=== PATIENT | female | born 1975 | race American Indian/Alaskan Native ===

== ENCOUNTER 2017-05-24 00:37 | Emergency (ER) | payer OTHER ==
[2017-05-24] MEDS ORDERED: LIDOCAINE VISCOUS 2% PO ONE (04:49)
[2017-05-24] MEDS ORDERED: TORADOL IM ONE (04:49)
--- NOTE | 2017-05-24 04:58 | Emergency Department Report ---
ED ENT HPI - General Chief complaint: Sore Throat Stated complaint: SORE THROAT Time Seen by Provider: 05/24/17 03:21 Source: patient Mode of arrival: Ambulatory Limitations: No Limitations - History of Present Illness Initial comments: This is a 41-year-old female nontoxic, well nourished in appearance, no acute signs of distress presents to the ED with c/o of sore throat 5 days. Patient distress pain as sensations while razor blades. Patient denies any drooling, chest pain, shortness of breath, fever, chills, nausea, vomiting, headache or stiff neck. Patient denies any allergies or past medical history. MD complaint: tooth pain -: days(s) (5) Location: throat Severity: mild Severity scale (0 -10): 8 Quality: other (sensation of swallowing razor blades) Consistency: constant Worsens with: none Associated Symptoms: pain with swallowing, sore throat. denies: fever, cough, gum swelling, toothache, tinnitus, hearing loss, discharge from ear, rhinorrhea - Related Data Previous Rx's Medication Instructions Recorded Last Taken Type Azithromycin [Zithromax Z-PIEDAD] 250 mg PO DAILY #6 tablet 04/23/14 Unknown Rx Guaifenesin/Codeine Phosphate 5 ml PO BID PRN #10 dose 04/23/14 Unknown Rx [Guaifen-Codeine 100-10 mg/5 ml] Prednisone [Prednisone 5 mg (6-Day 5 mg PO .TAPER #1 tab.ds.pk 04/23/14 Unknown Rx Pack, 21 Tabs)] Promethazine [Phenergan] 25 mg PO BID PRN #10 tablet 04/23/14 Unknown Rx Amoxicillin/K Clav Tab [Augmentin 1 each PO Q12HR #20 tablet 05/24/17 Unknown Rx 500 MG TAB] Nystas/Diphen/Xyl Visc/Mylanta 15 ml MM Q6H PRN 10 Days udc 05/24/17 Unknown Rx [Magic Mouthwash] Allergies Allergy/AdvReac Type Severity Reaction Status Date / Time No Known Allergies Allergy Verified 04/23/14 06:55 ED Dental HPI - General Chief complaint: Sore Throat Stated complaint: SORE THROAT Time Seen by Provider: 05/24/17 03:21 Source: patient Mode of arrival: Ambulatory Limitations: No Limitations - Related Data Previous Rx's Medication Instructions Recorded Last Taken Type Azithromycin [Zithromax Z-PIEDAD] 250 mg PO DAILY #6 tablet 04/23/14 Unknown Rx Guaifenesin/Codeine Phosphate 5 ml PO BID PRN #10 dose 04/23/14 Unknown Rx [Guaifen-Codeine 100-10 mg/5 ml] Prednisone [Prednisone 5 mg (6-Day 5 mg PO .TAPER #1 tab.ds.pk 04/23/14 Unknown Rx Pack, 21 Tabs)] Promethazine [Phenergan] 25 mg PO BID PRN #10 tablet 04/23/14 Unknown Rx Amoxicillin/K Clav Tab [Augmentin 1 each PO Q12HR #20 tablet 05/24/17 Unknown Rx 500 MG TAB] Nystas/Diphen/Xyl Visc/Mylanta 15 ml MM Q6H PRN 10 Days udc 05/24/17 Unknown Rx [Magic Mouthwash] Allergies Allergy/AdvReac Type Severity Reaction Status Date / Time No Known Allergies Allergy Verified 04/23/14 06:55 ED Review of Systems ROS: Stated complaint: SORE THROAT Other details as noted in HPI Constitutional: denies: chills, fever Eyes: denies: eye pain, eye discharge, vision change ENT: throat pain. denies: ear pain Respiratory: denies: cough, shortness of breath, wheezing Cardiovascular: denies: chest pain, palpitations Endocrine: no symptoms reported Gastrointestinal: denies: abdominal pain, nausea, diarrhea Genitourinary: denies: urgency, dysuria, discharge Musculoskeletal: denies: back pain, joint swelling, arthralgia Skin: denies: rash, lesions Neurological: denies: headache, weakness, paresthesias Psychiatric: denies: anxiety, depression Hematological/Lymphatic: denies: easy bleeding, easy bruising ED Past Medical Hx - Past Medical History Previous Medical History?: No - Surgical History Past Surgical History?: Yes Additional Surgical History: ectopic , tubal - Social History Smoking Status: Never Smoker Substance Use Type: None - Medications Home Medications: Home Medications Medication Instructions Recorded Confirmed Last Taken Type Azithromycin [Zithromax Z-PIEDAD] 250 mg PO DAILY #6 tablet 04/23/14 Unknown Rx Guaifenesin/Codeine Phosphate 5 ml PO BID PRN #10 dose 04/23/14 Unknown Rx [Guaifen-Codeine 100-10 mg/5 ml] Prednisone [Prednisone 5 mg (6-Day 5 mg PO .TAPER #1 tab.ds.pk 04/23/14 Unknown Rx Pack, 21 Tabs)] Promethazine [Phenergan] 25 mg PO BID PRN #10 tablet 04/23/14 Unknown Rx Amoxicillin/K Clav Tab [Augmentin 1 each PO Q12HR #20 tablet 05/24/17 Unknown Rx 500 MG TAB] Nystas/Diphen/Xyl Visc/Mylanta 15 ml MM Q6H PRN 10 Days udc 05/24/17 Unknown Rx [Magic Mouthwash] ED Physical Exam - General Limitations: No Limitations General appearance: alert, in no apparent distress - Head Head exam: Present: atraumatic, normocephalic - Eye Eye exam: Present: normal appearance - ENT ENT exam: Present: mucous membranes moist, TM's normal bilaterally, normal external ear exam - Expanded ENT Exam Expanded Ear exam: Present: normal external inspection Mouth exam: Present: normal external inspection, tongue normal. Absent: drooling, trismus, muffled voice, tongue elevation, laceration Teeth exam: Present: normal inspection Throat exam: Positive: tonsillar erythema, tonsillomegaly (2+), tonsillar exudate, other (Uvula midline. No abscess or swelling ntoed. ). Negative: R peritonsillar mass, L peritonsillar mass - Neck Neck exam: Present: normal inspection, full ROM, lymphadenopathy (tonsillar bilateral). Absent: tenderness, meningismus, thyromegaly - Respiratory Respiratory exam: Present: normal lung sounds bilaterally. Absent: respiratory distress, wheezes, rales, rhonchi, stridor, chest wall tenderness, accessory muscle use, decreased breath sounds, prolonged expiratory - Cardiovascular Cardiovascular Exam: Present: regular rate, normal rhythm, normal heart sounds. Absent: irregular rhythm, systolic murmur, diastolic murmur, rubs, gallop - GI/Abdominal GI/Abdominal exam: Present: soft, normal bowel sounds. Absent: distended, tenderness, guarding, rebound, rigid - Extremities Exam Extremities exam: Present: normal inspection, full ROM, normal capillary refill. Absent: tenderness, pedal edema, joint swelling, calf tenderness - Back Exam Back exam: Present: normal inspection, full ROM. Absent: tenderness, CVA tenderness (R), CVA tenderness (L), muscle spasm, paraspinal tenderness, vertebral tenderness, rash noted - Neurological Exam Neurological exam: Present: alert, oriented X3, CN II-XII intact, normal gait, reflexes normal - Psychiatric Psychiatric exam: Present: normal affect, normal mood - Skin Skin exam: Present: warm, dry, intact, normal color. Absent: rash ED Course Vital Signs 05/24/17 01:17 Temperature 98.4 F Pulse Rate 116 H Blood Pressure 160/103 O2 Sat by Pulse 18 L Oximetry - Reevaluation(s) Reevaluation #1: 05/24/17 05:12 Patient is speaking in full sentences with no signs of distress noted. ED Medical Decision Making - Medical Decision Making This is a 41-year-old female that presents with tonsillitis exudate. Patient is stable and was examined by me. Strep test negative. Patient received viscous lidocaine and Toradol and the ED with the status symptoms are improving and her subsided. Vital signs stable for discharge. Patient was instructed Follow-up with a primary care doctor in 3-5 days or if symptoms worsen and continue return to emergency room as soon as possible. At time time of discharge, the patient does not seem toxic or ill in appearance. No acute signs of distress noted. Patient agrees to discharge treatment plan of care. No further questions noted by the patient. Critical care attestation.: If time is entered above; I have spent that time in minutes in the direct care of this critically ill patient, excluding procedure time. ED Disposition Clinical Impression: Tonsillitis with exudate Disposition: DC-01 TO HOME OR SELFCARE Is pt being admited?: No Does the pt Need Aspirin: No Condition: Stable Instructions: Tonsillitis (ED), Amoxicillin/Clavulanate Potassium (By mouth) Additional Instructions: Follow-up with a primary care doctor in 3-5 days or if symptoms worsen and continue return to emergency room as soon as possible. Prescriptions: Amoxicillin/K Clav Tab [Augmentin 500 MG TAB] 1 each PO Q12HR #20 tablet Nystas/Diphen/Xyl Visc/Mylanta [Magic Mouthwash] 15 ml MM Q6H PRN 10 Days udc PRN Reason: Sore Throat Referrals: PRIMARY CARE, [Primary Care Provider] - 3-5 Days BRENT RITTER MD [Staff Physician] - 3-5 Days [facility] [Outside] - 3-5 Days [facility] [Outside] - 3-5 Days Forms: Work/School Release Form(ED)
[2017-05-24 05:16] VITALS: BP 149/89
== END 2017-05-24 06:13 | disposition home or self-care (01) ==
LOC: ED 00:37
DX: J03.90 Acute tonsillitis, unspecified (principal)
CPT/HCPCS: 87116; 87430; 96372; 99282; J1885

== ENCOUNTER 2021-12-05 06:00 | Observation (INO) | payer OTHER ==
[2021-11-29 11:12] LABS: Basophils # (Auto) 0.1 K/mm3 (0.0-0.1); Basophils % (Auto) 0.7 % (0.0-1.8); Eosinophils % (Auto) 0.6 % (0.0-4.3); Hematocrit 40.1 % (30.3-42.9); Lymphocytes % (Auto) 28.6 % (13.4-35.0); Mean Corpuscular HGB Conc 32 % (30-34); Mean Corpuscular Volume 83 fl (79-97); Monocytes # (Auto) 0.5 K/mm3 (0.0-0.8); Monocytes % (Auto) 7.4 % (0.0-7.3); Platelet Count 322 K/mm3 (140-440); Red Blood Count 4.85 M/mm3 (3.65-5.03); Red Cell Distribution Width 14.9 % (13.2-15.2)
[2021-11-29 11:28] LABS: Blood Urea Nitrogen 11 mg/dL (7-17); Calcium 9.5 mg/dL (8.4-10.2); Hemolysis Index 2
[2021-11-29 11:57] LABS: BUN/Creatinine Ratio 16
--- NOTE | 2021-11-30 12:32 | History and Physical Report ---
History of Present Illness Date of examination: 11/29/21 Date of admission: 12/05/2021 Chief complaint: heavy vaginal bleeding History of present illness: Visit Type: Pre-Op CC: no complaints. History of Present Illness: Pt presents for Pre Op Visit. No c/o. .... .................................................................Kely Bourne November 29, 2021 9:43 AM mask,Patient denies fever, cough, shortness of breath and exposure to COVID-19. Pt here for pre op for LAVH with salpingectomy. She has menorrhagia and dysmenorrhea. All risk/benefits/alternatives were d/w pt and questions were addressed and answered. Several minutes spent speaking with pt regarding total vs partal hysterectoy. Stressed to pt that total does not mean removal of the ovaries but it does mean removal of the cx which does not have any hormonal value. She expressed understanidng. All risk/benefits/alternatives were d/w pt and questions were addressed and answered. Consents signed and placed on the chart and copy provider to pt. I did stress that should the LAVH need to be converted to abdominal procedure this would also involve removal of the cervix. She expressed understanding. Vital Signs: Patient Profile: 46 Years Old Female LMP: 11/05/2021 Height: 65 inches Weight: 205 pounds BMI: 34.11 Temp: 98.1 degrees F BP sittin / 82 (left arm) Menstrual History: LMP (date): 11/05/2021 Past History : 6 Term Births: 4 Premature Births: 0 Living Children: 4 Para: 4 Mult. Births: 0 Prev : 0 Prev. attempt? 0 Aborta: 2 Elect. Ab: 0 Spont. Ab: 1 Ectopics: 1 [employer] History Uterine Surgery (not C/S): negative Operations: positive Tubal Ligation Ectopic - R tubal removed (1995) Total thyroidectomy - 09/2019 - thyroid cancer Hospitalizations: negative Anesthesia Complications: negative Abnormal PAP: negative Uterine Anomaly: negative JAVI Exposure: negative Infertility: negative Infection History HIV Risk Eval: no Personal hx. of genital herpes: no Partner hx. of genital herpes: no Hx of STD: None Active Medications (reviewed today): SYNTHROID 137 MCG ORAL TABLET (LEVOTHYROXINE SODIUM) LYSTEDA 650 MG ORAL TABLET (TRANEXAMIC ACID) 1300 mg 3 times daily (3900 mg/day) for up to 5 days during monthly menstruation AMLODIPINE BESYLATE TABLET (AMLODIPINE BESYLATE TABS) HYDROCHLOROTHIAZIDE TABLET (HYDROCHLOROTHIAZIDE TABS) Current Allergies (reviewed today): No known allergies Past Medical History: Reviewed history from 09/19/2021 and no changes required: Hypertension Hyperthyroidism Anemia Past Surgical History: Reviewed history from 09/19/2021 and no changes required: positive Tubal Ligation Ectopic - R tubal removed (1995) Total thyroidectomy - 09/2019 - thyroid cancer Family History Summary: Reviewed history Last on 09/19/2021 and no changes required:11/30/2021 General Comments - FH: aneurysm-mother breast CA-(P) anunt DM-"both sides" Social History: Reviewed history from 02/20/2019 and no changes required: Patient is single Smoking History: Patient has never smoked. 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 Denies nausea, vomiting, headache, swelling of legs, abdominal pain, vaginal discharge, vaginal bleeding and contractions. Denies vaginal discharge, incontinence, dysuria, hematuria, urinary frequency, amenorrhea, menorrhagia, abnormal vaginal bleeding, pelvic pain, genital sores, decreased libido, painful periods, painful sex, urinary urgency, hot flashes, vaginal dryness, vaginal itching and vaginal odor. CV Denies chest pains, palpitations, syncope, dyspnea on exertion, orthopnea, PND and peripheral edema. Resp Denies cough, dyspnea at rest, excessive sputum, hemoptysis, wheezing and pleurisy. GI Denies nausea, vomiting, diarrhea, constipation, change in bowel habits, abdominal pain, melena, hematochezia, jaundice, gas/bloating, indigestion/heart burn, dysphagia and odynophagia. Endo Denies cold intolerance, heat intolerance, polydipsia, polyphagia, polyuria and unusual weight change. Breast Denies left breast lump, right breast lump, nipple discharge, bloody discharge from nipple, breast pain, abnormal mammogram and breast enlargement. MS Denies back pain, joint pain, joint swelling, muscle cramps, muscle weakness, stiffness, arthritis, sciatica, restless legs, leg pain at night and leg pain with exertion. Derm Denies rash, itching, dryness and suspicious lesions. Neuro Denies paralysis, paresthesias, headache, seizures, tremors, vertigo, transient blindness, frequent falls, frequent headaches and difficulty walking. Psych Denies depression, anxiety, irritability and mood swings. Eyes Denies blurring, diplopia, irritation, discharge, vision loss, eye pain and photophobia. ENT Denies earache, ear discharge, tinnitus, decreased hearing, nasal congestion, nosebleeds, sore throat and hoarseness. Allergy Denies urticaria, allergic rash, hay fever and recurrent infections. Heme Denies abnormal bruising, bleeding and enlarged lymph nodes. [Labs In-House] Physical Exam Appearance: well developed, well nourished, no acute distress Other Exams Breast exam: no masses or nipple discharge Abdomen: soft, non-tender, no masses, bowel sounds normal Skin: no ulcers, xanthomas Lymph: no cervical, axillary, or inguinal adenopathy Extremities: normal alignment, no joint enlargement, crepitus, masses or tenderness; normal tone and strength Genitourinary Exam Comments: deferred until EUA Past History Past Medical History: other (see hpi) Past Surgical History: other (see hpi) [employer] History: other (see hpi) Family/Genetic History: other (see hpi) Social history: other (see hpi) Medications and Allergies Allergies Allergy/AdvReac Type Severity Reaction Status Date / Time No Known Allergies Allergy Verified 04/23/14 06:55 Home Medications Medication Instructions Recorded Confirmed Last Taken Type Levothyroxine Sodium [Synthroid] 137 mcg PO DAILY 11/24/21 11/24/21 Unknown History traZODone [Desyrel] 50 mg PO QHS 11/24/21 11/24/21 Unknown History Review of Systems All systems: negative - Vital Signs Vital signs: Vital Signs Temp Pulse Resp BP Pulse Ox 98.7 F 73 20 161/97 97 11/29/21 11:00 11/29/21 11:00 11/29/21 11:00 11/29/21 11:00 11/29/21 11:00 Temp Pulse Resp BP Pulse Ox 98.7 F 73 20 161/97 97 11/29/21 11:00 11/29/21 11:00 11/29/21 11:00 11/29/21 11:00 11/29/21 11:00 - Physical Exam Cardiovascular: Normal S1, Normal S2 Lungs: Positive: Clear to auscultation, Normal air movement Abdomen: Positive: normal appearance, soft. Negative: distention, tenderness, guarding Genitourinary (Female): Positive: other (deferred until eua) Extremities: Positive: normal. Negative: tenderness, edema Deep Tendon Reflex Grade: Normal +2 Results Result Diagrams: 11/29/21 11:05 11/29/21 06:00 All other labs normal. Assessment and Plan - Patient Problems (1) Menorrhagia Status: Acute Qualifiers: Menorrhagia type: with regular cycle Qualified Code(s): N92.0 - Excessive and frequent menstruation with regular cycle Plan to address problem: -plan for lavh with salpingectomy -consents signed and placed on the chart -all risk.benefits and alternatives were d/w pt and questions were addressed and answered. (2) Dysmenorrhea Status: Acute
[~2021-12-05 06:00] MED LIST: ACETAMINOPHEN 500 MG TAB PO SCH; CELECOXIB 200 MG CAP PO NR; GABAPENTIN 300 MG CAP PO SCH; MAGNESIUM OXIDE 400 MG TAB PO SCH; ceFAZolin/Water 2 GM/20 ML 2 GM/20 ML SYRINGE IV NR
[2021-12-05] MEDS: LACTATED RINGERS 1,000 ML IV SCH ×3 (06:45→23:58)
[2021-12-05] MEDS ORDERED: BUPIVACAINE/PF (0.5%) 5 MG/1 ML 30 ML VIAL INFILTRATI ONE ×2 (07:19→09:15)
[2021-12-05] MEDS ORDERED: VASOPRESSIN 20 UNIT/1 ML INJ ONE (07:19)
[2021-12-05] MEDS ORDERED: SODIUM CHLORIDE 0.9% 100 ML ONE (07:19)
[2021-12-05] MEDS ORDERED: ROCURONIUM 50 MG/5 ML INJ IV ONE ×2 (07:45→10:36)
[2021-12-05] MEDS ORDERED: LIDOCAINE MPF (2%) 20 MG/1 ML VIAL 5 ML ONE (07:45)
[2021-12-05] MEDS ORDERED: ONDANSETRON 4 MG/2 ML INJ ONE (07:45)
[2021-12-05] MEDS ORDERED: HYDROmorphone 1 MG/1 ML INJ ONE (07:46)
[2021-12-05] MEDS ORDERED: propofoL 200 MG/20 ML VIAL IV ONE (07:46)
[2021-12-05] MEDS ORDERED: ANTICOAGULANT SOD CITRATE SOLUTION MC ONE ×2 (07:49→09:14)
--- NOTE | 2021-12-05 08:08 | Anesthesia Consultation ---
Anesthesia Consult and Med Hx Date of service: 12/05/21 - Airway Anesthetic Teeth Evaluation: Good ROM Head & Neck: Adequate Mental/Hyoid Distance: Adequate Mallampati Class: Class II Intubation Access Assessment: Probably Good - Pulmonary Exam CTA: Yes - Pre-Operative Health Status ASA Pre-Surgery Classification: ASA2 Proposed Anesthetic Plan: General - Pulmonary Hx Smoking: No Hx Sleep Apnea: No (Snores) - Cardiovascular System Hx Hypertension: Yes (IN PAST-DUE TO STRESS-NONE NOW-TRAZADONE AT HS) - Central Nervous System Hx Neuromuscular Disorder: No Hx Back Pain: Yes Hx Psychiatric Problems: Yes (HX STRESS) - Gastrointestinal Hx Ulcer: No - Endocrine Hx Renal Disease: No Hx Liver Disease: No Hx Insulin Dependent Diabetes: No Hx Non-Insulin Dependent Diabetes: No Hx Thyroid Disease: Yes Hx Hypothyroidism: Yes - Hematic Hx Anemia: Yes Hx Sickle Cell Disease: No - Other Systems Hx Alcohol Use: Yes (OCC.) Hx Substance Use: No Hx Cancer: Yes Hx Obesity: Yes
--- NOTE | 2021-12-05 08:09 | Anesthesia Day of Surgery ---
Anesthesia Day of Surgery - Day of Surgery Patient Examined: Yes Patient H&P Reviewed: Yes Patient is NPO: Yes Beta Blockers: No Cardiac Clearance: No Pulmonary Clearance: No
[2021-12-05] MEDS ORDERED: ONDANSETRON 4 MG/2 ML INJ IV PRN (09:00)
[2021-12-05] MEDS ORDERED: HYDROmorphone 0.5 MG/0.5 ML INJ IV PRN ×2 (09:00)
[2021-12-05] MEDS ORDERED: dexAMETHasone 20 MG/5 ML VIAL ONE (09:12)
[2021-12-05] MEDS ORDERED: PHENYLEPHRINE/NS 1,000 MCG/10 ML SYRINGE (OR USE) IV ONE (09:12)
[2021-12-05] MEDS ORDERED: SODIUM CHLORIDE 0.9% IRRIG SOLN 2000 ML IR ONE (09:15)
[2021-12-05] MEDS ORDERED: VASOPRESSIN 20 UNIT/1 ML INJ IM ONE (09:15)
[2021-12-05] MEDS ORDERED: SODIUM CHLORIDE 0.9% IRR 1,500 ML BOTTLE IR ONE (09:15)
[2021-12-05] MEDS ORDERED: SODIUM CHLORIDE 0.9% 100 ML IVPB IV ONE (09:16)
[2021-12-05] MEDS ORDERED: LACTATED RINGERS 1,000 ML ONE ×2 (10:06→12:15)
[2021-12-05] MEDS ORDERED: GLYCOPYRROLATE 0.4 MG/2 ML INJ ONE (10:55)
[2021-12-05] MEDS ORDERED: NEOSTIGMINE 10MG/10 ML INJ MDV ONE (10:55)
--- NOTE | 2021-12-05 11:04 | Operative Report ---
Operative Report Operative Report: Date of procedure: 12/05/2021 Pre-operative diagnosis: Menorrhagia Dysmenorrhea Post-operative diagnosis: Same Procedure name(s): Laparoscopic assisted vaginal hysterectomy Left salpingectomy Surgeon: Cori Gaviria MD Conditioner Tumbler Operator: Dr. Valencia Buenrostro Anesthesia: General endotracheal anesthesia EBL: 600 mL Urine output: 300 mL of clear urine out at end of procedure Fluids: 1500 mL Findings: Grossly normal ovaries bilaterally. No fallopian tube on the right side. Left fallopian tube appeared to be normal. Approximately 10-week size uterus globular in consistency. Indications: Patient with history of menorrhagia and dysmenorrhea desired definitive therapy. All risk benefits and alternatives were discussed with the patient. Consents were signed and placed on the chart. Procedure: Patient was taken to the operating room where she was placed under general endotracheal anesthesia. She was then prepped and draped in sterile fashion. It was at this point that the large V care uterine manipulator was placed inside of the uterus after the uterus was sounded to approximately 12 cm. Fischer catheter was also placed at this time. Attention was then turned to the umbilicus in which a supraumbilical incision was made. Under direct visualization the 5 mm trocar was placed inside the peritoneum the peritoneum was then insufflated. As at this point that the laparoscopic portion of the procedure was performed. 2 lateral 5 mm ports were also placed under direct visualization. Using the tripolar instrument the upper pedicles were cauterized and transected to the including round ligament with excellent hemostasis noted bilaterally. Attention was then turned vaginally. A weighted speculum was placed into the vagina and the cervix was grasped with a single-tooth tenaculum 2. The cervix was then injected circumferentially with Pitressin. The cervix was then circumferentially incised with the scalpel and the bladder dissected off of the pubovesical cervical fascia anteriorly with a sponge stick and Metzenbaum scissors. The same procedure was performed posteriorly and the posterior cul-de-sac was entered into sharply without difficulty. At this point a Rosana Clamp was placed over the uterosacral ligaments on either side. These were then transected and suture ligated with 0 Vicryl. Hemostasis was assured. The cardinal ligaments were then clamped on both sides transected and suture ligated in similar fashion. The uterine arteries were then serially clamped with Rosana clamps transected and suture ligated on both sides. Excellent hemostasis was visualized. After it was clear that the uterus had been completely from all pedicles the uterus was removed vaginally intact with cervix intact. The vaginal cuff angles were closed with figure of 8 stitches of 0 Vicryl on both sides. The peritoneum was incorporated in the stitching of the vaginal cuff. A series of interrupted figure of 8 sutures using 0 Vicryl were used to close the entire vaginal cuff. Excellent hemostasis was noted. The vagina was then irrigated copiously. Attention was then turned laparoscopically at which time. Again all pedicles were noted to be hemostatic. All instruments were then removed from the abdomen and the vagina. All gas was released from the abdomen. The abdominal incisions were closed using 4-0 Monocryl. All of the abdominal incisions were injected with Marcaine without epi. Patient tolerated the procedure well sponge lap and needle counts were all correct 3 the patient was taken to the recovery room awake and in stable condition.
[2021-12-05] MEDS ORDERED: IBUPROFEN 800 MG TAB PO PRN (11:06)
[2021-12-05] MEDS ORDERED: ACETAMINOPHEN 325 MG TAB PO PRN (11:06)
[2021-12-05] MEDS: MORPHINE 4 MG/1 ML INJ IV PRN ×2 (12:21→23:16)
[2021-12-05] MEDS: KETOROLAC 30 MG/1 ML INJ IV PRN ×2 (14:30→20:31)
[2021-12-05] MEDS: ceFAZolin/NS 1 GM/50 ML 1 GM/50 ML BAG IV SCH ×2 (14:39→23:18)
[2021-12-05] MEDS ORDERED: PHENOL 1.4% 177 ML BOTTLE MM PRN (16:30)
--- NOTE | 2021-12-05 17:33 | Post Anesthesia Evaluation ---
- Post Anesthesia Evaluation Patient Participated: Yes Airway Patent: Yes Stable Respiratory Function: Yes Nausea/Vomiting: No Temp > 96.8F: Yes Pain Manageable: Yes Adequeate Hydration: Yes Anesthesia Complications: No Block Receding Appropriately: Not Applicable Patient on Ventilator: No
[2021-12-05] MEDS: HYDROcodone/ACETAMINOPHEN 5-325 MG TAB PO PRN (17:56)
--- NOTE | 2021-12-05 21:13 | Event Note ---
Date: 12/05/21 Patient doing well, better pain control with Percocet. UO good w/ clear light yellow urine draining into Fischer bag. Tolerating diet. Questions encouraged and answered,
[2021-12-06] MEDS: HYDROcodone/ACETAMINOPHEN 5-325 MG TAB PO PRN ×2 (03:46→10:33)
[2021-12-06] MEDS ORDERED: ONDANSETRON 4 MG ODT TAB PO ONE (05:45)
[2021-12-06] MEDS ORDERED: LEVOTHYROXINE 25 MCG TAB PO SCH (06:00)
[2021-12-06] MEDS ORDERED: LEVOTHYROXINE 112 MCG TAB PO SCH (06:00)
[2021-12-06] MEDS ORDERED: LEVOTHYROXINE 112 MCG, LEVOTHYROXINE 25 MCG PO SCH (06:00)
[2021-12-06 06:16] LABS: Hematocrit 32.7 % (30.3-42.9); Hemoglobin 10.3 gm/dl (10.1-14.3)
--- NOTE | 2021-12-06 09:01 | Progress Note ---
Assessment and Plan - Patient Problems (1) Menorrhagia Status: Acute Qualifiers: Menorrhagia type: with regular cycle Qualified Code(s): N92.0 - Excessive and frequent menstruation with regular cycle (2) Dysmenorrhea Status: Acute (3) S/P laparoscopic assisted vaginal hysterectomy (LAVH) Status: Acute Plan to address problem: -routine post op care -d/c home this pm if remains AFVSS Subjective - Subjective Date of service: 12/06/21 Principal diagnosis: POD #1 s/p LAVH with LS Interval history: Pt doing well. + toleration of regular diet, spontaneous voiding and pain well controlled. Patient reports: appetite normal, voiding normally, pain well controlled Objective - Vital Signs Latest vital signs: Vital Signs Temp Pulse Resp BP BP Pulse Ox 12/06/21 04:10 98.6 F 69 18 115/79 12/06/21 03:46 20 12/06/21 00:38 98.6 F 54 L 18 137/65 100 12/05/21 23:16 18 12/05/21 20:38 98.6 F 84 16 131/73 100 12/05/21 20:15 98 12/05/21 16:00 99.6 F 80 18 128/66 99 12/05/21 14:21 98 12/05/21 13:15 98.1 F 98 H 16 133/70 98 12/05/21 13:00 98.1 F 63 18 129/71 98 12/05/21 12:30 63 18 131/69 98 12/05/21 12:15 72 20 133/75 100 12/05/21 12:00 62 17 135/66 100 12/05/21 11:45 59 L 17 125/70 100 12/05/21 11:30 59 L 18 121/63 100 12/05/21 11:25 63 18 126/65 100 12/05/21 11:20 57 L 19 113/59 100 12/05/21 11:15 98.5 F 59 L 18 119/58 100 Intake and Output 12/05/21 12/06/21 12/06/21 22:59 06:59 14:59 Intake Total 1690 400 Output Total 1900 1500 Balance -210 -1100 Intake: IV 1050 ANCEF/NS 1 GM/50 ML 1 gm 50 In 50 ml @ 100 mls/hr IV Q8H JOHN Rx#:[id number] Lactated Ringers 1,000 ml 1000 @ 125 mls/hr IV DIRECT JOHN Rx#:[id number] Oral 640 Intake, Free Water 400 Output: Urine 1900 1500 Indwelling Catheter 1900 1500 Other: Total, Intake Amount 320 Total, Output Amount 700 700 Voiding Method Indwelling Catheter # Voids Indwelling Catheter 0 - Exam Cardiovascular: Present: Normal S1, Normal S2 Lungs: Present: Clear to auscultation Abdomen: Present: normal appearance, soft, normal bowel sounds. Absent: distention, tenderness, guarding Deep Tendon Reflex Grade: Normal +2 Incision: Present: normal, dry, intact
--- NOTE | 2021-12-06 09:01 | Discharge Summary ---
Providers - Providers Date of Admission: 12/05/21 11:06 Date of discharge: 12/06/21 Attending physician: RAY PRICE Primary care physician: PROGRAM DIRECTOR/MUSIC DIRECTOR Hospitalization Reason for admission: other (menorrhagia/ dysmenorrhea) Procedure: other (LAVH with RS) Procedure details: see op notes Incision: normal, dry, intact Hospital course: pt admitted for LAVH with salpingectomy. pt had above stated procedure that was not complicated. She had routine post op care and desired d/c home today. Condition at discharge: Stable Disposition: 01 HOME / SELF CARE / HOMELESS - Discharge Diagnoses (1) Menorrhagia Status: Acute Qualifiers: Menorrhagia type: with regular cycle Qualified Code(s): N92.0 - Excessive and frequent menstruation with regular cycle (2) Dysmenorrhea Status: Acute Plan - Discharge Medications Prescriptions: Ibuprofen [Motrin 800 MG tab] 800 mg PO Q8HR PRN #30 tablet PRN Reason: Pain, Moderate (4-6) oxyCODONE /ACETAMINOPHEN [Percocet 5/325] 1 tab PO Q4HR #10 tab - Provider Discharge Summary Activity: routine, no sex for 6 weeks Diet: routine Instructions: routine Additional instructions: [] Smoking cessation referral if applicable(refer to patient education folder for contact #) [] Refer to [facility]'s [facility] Booklet Call your doctor immediately for: * Fever > 100.5 * Heavy vaginal bleeding ( >1 pad per hour) * Severe persistent headache * Shortness of breath * Reddened, hot, painful area to leg or breast * Drainage or odor from incision. * Keep incision clean and dry at all times and follow doctor's instructions regarding bathing/showering - Follow up plan Follow up: PRIMARY CARE, [Primary Care Provider] - 7 Days RAY PRICE MD [Staff Physician] - 7 Days Forms: [facility] Discharge Summary
[2021-12-06 09:06] VITALS: BP 124/67
== END 2021-12-06 11:40 | disposition home or self-care (01) ==
LOC: OR 06:00 → OB 11:06
PROVIDERS: ADMIT Obstetrics & Gynecology; ATTEND Obstetrics & Gynecology
DX: N92.0 Excessive and frequent menstruation with regular cycle (principal); Z20.822 Contact with and (suspected) exposure to COVID-19; N94.6 Dysmenorrhea, unspecified
CPT/HCPCS: 36415; 58552; 80048; 84703; 85014; 85018; 85025; 86850; 86900; 86901; 88302; 88307; 96365; 96366; 96375; 96376; G0378; J0690; J1100; J1170; J1815; J1885; J2270; J2370; J2405; J2704; J2710; J3490; J7120; U0003; 88305; G0379; Q0162

== ENCOUNTER 2021-12-11 13:47 | Emergency (ER) | payer OTHER ==
[2021-12-11 14:11] VITALS: BP 148/85
[2021-12-11 14:54] LABS: Bilirubin,Urine NEG (Negative); Blood,Urine NEG (Negative); Color,Urine Straw (Yellow); Protein,Urine <15 mg/dL mg/dL (Negative); Urobilinogen,Urine < 2.0 mg/dL (<2.0)
[2021-12-11 14:56] LABS: Bacteria,Urine 1+ /HPF (Negative); Mucus,Urine FEW /HPF
[2021-12-11 15:10] LABS: Basophils % (Auto) 0.5 % (0.0-1.8); Eosinophils # (Auto) 0.1 K/mm3 (0.0-0.4); Eosinophils % (Auto) 0.6 % (0.0-4.3); Hematocrit 36.1 % (30.3-42.9); Hemoglobin 11.7 gm/dl (10.1-14.3); Lymphocytes # (Auto) 2.2 K/mm3 (1.2-5.4); Mean Corpuscular HGB Conc 32 % (30-34); Mean Corpuscular Volume 83 fl (79-97); Monocytes # (Auto) 0.4 K/mm3 (0.0-0.8); Monocytes % (Auto) 4.3 % (0.0-7.3); Platelet Count 291 K/mm3 (140-440); Red Blood Count 4.34 M/mm3 (3.65-5.03); Red Cell Distribution Width 15.3 % (13.2-15.2)
[2021-12-11 15:46] LABS: Alanine Aminotransferase 21 units/L (7-56); Albumin 3.8 g/dL (3.9-5); Blood Urea Nitrogen 14 mg/dL (7-17); Calcium 9.3 mg/dL (8.4-10.2); Hemolysis Index 7
[2021-12-11 15:47] LABS: BUN/Creatinine Ratio 20
== END 2021-12-11 18:00 | disposition left against medical advice (07) ==
LOC: ED 13:47
DX: R10.30 Lower abdominal pain, unspecified (principal); Z53.21 Procedure and treatment not carried out due to patient leaving prior to being seen by health care provider
CPT/HCPCS: 36415; 80053; 81001; 82140; 83690; 85025; 87040

== ENCOUNTER 2021-12-27 15:59 | Outpatient (CLI) | payer OTHER ==
--- NOTE | 2021-12-27 17:27 | Cat Scan Report ---
CT ABDOMEN AND PELVIS WITHOUT CONTRAST INDICATION / CLINICAL INFORMATION: postoperative pain per pt, just had a hysterectomy. TECHNIQUE: Axial CT images were obtained through the abdomen and pelvis without IV contrast. All CT scans at this location are performed using CT dose reduction for ALARA by means of automated exposure control. COMPARISON: None available. FINDINGS: LOWER CHEST: No significant abnormality. LIVER: 7 mm low-density lesion at the dome the liver. GALLBLADDER: No significant abnormality. BILE DUCTS: No significant abnormality. PANCREAS: No significant abnormality. SPLEEN: No significant abnormality. ADRENALS: No significant abnormality. RIGHT KIDNEY / URETER: No significant abnormality. LEFT KIDNEY / URETER: 1.8 cm cyst posteriorly. STOMACH / SMALL BOWEL: No significant abnormality. COLON: No significant abnormality. APPENDIX: No significant abnormality. PERITONEUM: No free fluid. No free air. No fluid collection. LYMPH NODES: No significant adenopathy. VASCULAR STRUCTURES: No significant abnormality. URINARY BLADDER: No significant abnormality. REPRODUCTIVE ORGANS: Previous hysterectomy. ADDITIONAL FINDINGS: Mild eventration of the anterior abdominal wall. One CM nodule inferior and medi al aspect of the right breast (series 4, image 7). SKELETAL SYSTEM: No significant abnormality. IMPRESSION: 1. Nodule inferior and medial right breast. If this is an unknown finding, mammographic evaluation is recommended. 2. Small liver lesion is likely an incidental cyst. 3. Negative for obstruction or localized inflammation. Signer Name: Kain Berrios MD Signed: 12/27/2021 5:23 PM Workstation Name: [email or web address] [id number]
== END 2021-12-27 16:00 | disposition home or self-care (01) ==
LOC: CT 15:59
PROVIDERS: ATTEND Obstetrics & Gynecology
DX: N28.1 Cyst of kidney, acquired (principal); G89.18 Other acute postprocedural pain; Z90.710 Acquired absence of both cervix and uterus
CPT/HCPCS: 74176